=== PATIENT | male | born 1960 | race Caucasian/White ===

== ENCOUNTER 2019-02-11 13:57 | Outpatient (CLI) | payer BC ==
--- NOTE | 2019-02-11 14:41 | ULT ---
EXAM: US Renal Bilateral STANDARD PROVIDED CLINICAL HISTORY: Microhematuria COMPARISON: None FINDINGS: Right kidney measures approximately 10.9 x 5.3 x 4.8 cm and demonstrates no evidence for hydronephros is, sonographically apparent calculus or mass. Left kidney measures approximately 11.8 x 6.2 x 5.1 cm and demonstrates no evidence for hydronephrosi s, sonographically apparent calculus or mass. 3 cm simple left renal cyst measuring about 3.4 cm. Urinary bladder appears sonographically unremarkable. Prevoid bladder volume 83 cc. Post void bladder volume 11.3 cc. IMPRESSION: No evidence for hydronephrosis.
== END 2019-02-11 13:58 | disposition home or self-care (01) ==
LOC: BICULT 13:57
PROVIDERS: ATTEND Family Medicine
DX: R31.21 Asymptomatic microscopic hematuria (principal)
CPT/HCPCS: 76770

== ENCOUNTER 2020-07-20 03:12 | Inpatient (IN) | payer BC, SELFPAY ==
[2020-07-20] MEDS ORDERED: Ondansetron PF 4 MG/2 ML Vial ONE (03:39)
[2020-07-20] MEDS ORDERED: Aspirin Chewable 81 MG TAB ONE (03:39)
[2020-07-20] MEDS ORDERED: Mag-Al 1200 mg/1200 mg/30 ML UDCUP ONE (03:40)
[2020-07-20] MEDS ORDERED: Lidocaine Viscous Sol 2% 15 ml UD Cup ONE (03:40)
[2020-07-20 03:56] LABS: #Basophils 0.1 thou/uL (0.0-0.2); #Eosinphils 0.1 thou/uL (0.0-0.7); #Lymphocytes 1.7 thou/uL (1.20-3.40); #Monocytes 0.8 thou/uL (0.11-0.59); #Neutrophils 10.6 thou/uL (1.40-6.50); %Basophils 0.5 % (0.0-1.0); %Eosinophils 0.4 % (0.0-10.0); %Lymphocytes 12.9 % (21.0-51.0); %Monocytes 6.3 % (0.0-10.0); %Neutrophils 79.9 % (42.0-75.0); Hemoglobin 15.7 g/dL (14.0-18.0); Mean Corpuscular HGB CONC 34.6 g/dL (32.0-36.0); Mean Corpuscular Hemoglobin 32.5 pg (27.0-31.0); Mean Corpuscular Volume 93.8 fL (78.0-98.0); Mean Platelet Volume 9.6 fL (7.4-10.4); Platelet Count 168 thou/uL (130-400); RBC Distribution Width 11.9 % (11.5-14.5); Red Blood Cell (RBC) Count 4.84 mill/uL (4.70-6.10); White Blood Cell (WBC) Count 13.3 thou/uL (4.8-10.8)
[2020-07-20 04:19] LABS: ALT (SGPT) 16 U/L (8-55); AST (SGOT) 15 U/L (5-34); Albumin 4.8 g/dL (3.5-5.0); Alkaline Phosphatase 73 U/L (40-110); Anion Gap 15 mmol/L (10-20); BUN (Urea Nitrogen) 14 mg/dL (8.4-25.7); Bilirubin, Total 0.3 mg/dL (0.2-1.2); CK (CPK) 110 U/L (30-200); Calc. Creatinine Clearance 0 mL/min (70-130); Calcium 9.2 mg/dL (7.8-10.44); Carbon Dioxide 31 mmol/L (22-29); Chloride 100 mmol/L (98-107); Globulin 2.7 g/dL (2.4-3.5); Glucose 146 mg/dL (70-105); Lipase 27 U/L (8-78); Potassium 4.4 mmol/L (3.5-5.1); Protein, Total 7.5 g/dL (6.0-8.3); Sodium 142 mmol/L (136-145)
[2020-07-20] MEDS ORDERED: Enoxaparin Sodium 80 MG/0.8 ML SYRINGE ONE (04:46)
[2020-07-20] MEDS ORDERED: Ondansetron ODT 4 MG TAB PO PRN (05:14)
[2020-07-20] MEDS ORDERED: Ondansetron PF 4 MG/2 ML Vial IVP PRN (05:14)
[2020-07-20] MEDS ORDERED: Acetaminophen 325 MG TAB PO PRN (05:14)
[2020-07-20 07:12] LABS: Cardiac Risk 5.9 (Less than 4.5)
[2020-07-20 07:20] LABS: Troponin I 0.746 ng/mL (< 0.028)
[2020-07-20 10:21] LABS: Troponin I 4.075 ng/mL (< 0.028)
[2020-07-20] MEDS ORDERED: Communication Order-Pharmacy FS SCH (10:30)
[2020-07-20 11:14] LABS: SARS-CoV-2 PCR by NAA Not Detected (NotDetected)
[2020-07-20 13:10] LABS: Troponin I 8.535 ng/mL (< 0.028)
[2020-07-20] MEDS ORDERED: Iopamidol 370 76% 100 ML VIAL ONE (13:26)
[2020-07-20 16:05] VITALS: BMI 24.5
[2020-07-20] MEDS: Atorvastatin Calcium 40 MG TAB PO SCH (20:50)
[2020-07-20] MEDS ORDERED: Enoxaparin Sodium 80 MG/0.8 ML SYRINGE SC SCH (21:00)
[2020-07-21] MEDS ORDERED: Iopamidol 370 76% 100 ML VIAL ONE (08:49)
[2020-07-21] MEDS: Aspirin 81 mg Enteric Coated Tablet PO SCH (11:27)
[2020-07-21] MEDS ORDERED: Lidocaine 1% (PF) 30 ML VIAL ONE (11:29)
[2020-07-21] MEDS ORDERED: Midazolam HCl 2 mg/2 ml Vial ONE (12:12)
[2020-07-21] MEDS ORDERED: Heparin 10,000 UNITS/ 10 ML VIAL ONE (12:39)
[2020-07-21] MEDS ORDERED: Protamine Sulfate 50 MG/5 ML VIAL ONE (13:09)
[2020-07-21] MEDS: Enoxaparin Sodium 80 MG/0.8 ML SYRINGE SC SCH (20:36)
[2020-07-21] MEDS: Atorvastatin Calcium 40 MG TAB PO SCH (20:36)
[2020-07-22 06:25] LABS: Anion Gap 12 mmol/L (10-20); BUN (Urea Nitrogen) 11 mg/dL (8.4-25.7); Calc. Creatinine Clearance 102 mL/min (70-130); Calcium 8.7 mg/dL (7.8-10.44); Carbon Dioxide 24 mmol/L (22-29); Chloride 106 mmol/L (98-107); Glucose 95 mg/dL (70-105); Potassium 4.1 mmol/L (3.5-5.1); Sodium 138 mmol/L (136-145)
[2020-07-22] MEDS: Aspirin 81 mg Enteric Coated Tablet PO SCH (10:07)
[2020-07-22] MEDS: Enoxaparin Sodium 80 MG/0.8 ML SYRINGE SC SCH ×2 (10:07→21:06)
[2020-07-22] MEDS ORDERED: Iopamidol 370 76% 100 ML VIAL ONE (14:09)
[2020-07-22] MEDS ORDERED: Communication Order-Pharmacy FS ONE (15:10)
[2020-07-22] MEDS ORDERED: Famotidine 20 MG TAB PO SCH (21:00)
[2020-07-22] MEDS: Atorvastatin Calcium 40 MG TAB PO SCH (21:06)
[2020-07-23] MEDS ORDERED: Albumin 5% 0 ML ONE (08:00)
[2020-07-23] MEDS ORDERED: Sodium Chloride 0.9% 30 ML ONE (09:05)
[2020-07-23] MEDS ORDERED: Albumin 5% 500 ML ONE (09:05)
[2020-07-23] MEDS ORDERED: Heparin 10,000 UNITS/1 ML VIAL 30,000 UNITS in Sodium Chloride 0.9% 1,000 ML FS SCH (09:30)
[2020-07-23] MEDS ORDERED: Fentanyl 250 MCG/5 ML VIAL ONE (09:53)
[2020-07-23] MEDS ORDERED: Midazolam HCl 5 mg/5 ml Vial ONE (09:53)
[2020-07-23] MEDS ORDERED: CEFAZOLIN 2 GM in Premix Bag 1 BAG IVPB SCH (10:30)
[2020-07-23] MEDS ORDERED: Calcium Chloride 1 GM/10 ML Abboject SYRINGE ONE (10:39)
[2020-07-23] MEDS ORDERED: Heparin 30,000 units/30 ml VIAL ONE (10:39)
[2020-07-23] MEDS ORDERED: Papaverine 60 MG/2 ML VIAL ONE (10:39)
[2020-07-23] MEDS ORDERED: Mannitol 12.5 GM/50 ML ONE (10:39)
[2020-07-23] MEDS ORDERED: Magnesium Sulfate 1 GM/2 ML VIAL ONE (10:39)
[2020-07-23] MEDS ORDERED: Aminocaproic Acid 5 GM/20 ML VIAL ONE (10:39)
[2020-07-23] MEDS ORDERED: Lidocaine 2% PF 100 mg/5 ml Syringe ONE (10:39)
[2020-07-23] MEDS ORDERED: Thrombin 5000 UNITS/5 ML VIAL ONE (10:39)
[2020-07-23] MEDS ORDERED: ePHEDrine Sulfate 50 MG/10 ML VIAL ONE (10:39)
[2020-07-23] MEDS ORDERED: Vecuronium 10 MG VIAL ONE (10:39)
[2020-07-23] MEDS ORDERED: Potassium Chloride 60 MEQ/30 ML VIAL ONE (10:39)
[2020-07-23] MEDS ORDERED: Sodium Bicarb 50 MEQ/50 ML Abboject 8.4% SYRINGE ONE (10:39)
[2020-07-23] MEDS ORDERED: Protamine Sulfate 250 MG/25 ML VIAL ONE (10:39)
[2020-07-23] MEDS ORDERED: PROPOFOL 200 MG/20 ML VIAL ONE (10:39)
[2020-07-23] MEDS ORDERED: Hetastarch 6% 500 ML 500 ML IVPB PRN (13:25)
[2020-07-23] MEDS ORDERED: niCARdipine 25 MG in Sodium Chloride 0.9% 250 ML 250 ML IVPB PRN (13:25)
[2020-07-23] MEDS ORDERED: Morphine 2 MG/ML VIAL SLOW IVP PRN (13:25)
[2020-07-23] MEDS ORDERED: hydrALAZINE 20 MG/ML VIAL SLOW IVP PRN (13:25)
[2020-07-23] MEDS ORDERED: Fentanyl 100 MCG/2 ML VIAL SLOW IVP PRN ×2 (13:25)
[2020-07-23] MEDS ORDERED: Norepinephrine 8 MG/0.9% NS 250 ML IVPB PRN (13:25)
[2020-07-23] MEDS ORDERED: Mag-Al 1200 mg/1200 mg/30 ML UDCUP PO PRN (13:25)
[2020-07-23] MEDS ORDERED: Promethazine HCl 25 MG/ML VIAL IM PRN (13:25)
[2020-07-23] MEDS ORDERED: Guaifenesin DM 100-10/5 ML UDCUP PO PRN (13:25)
[2020-07-23] MEDS ORDERED: Nitroglycerin 50 MG/250 ML BOT 250 ML IVPB PRN (13:25)
[2020-07-23] MEDS ORDERED: Bisacodyl 5 MG TAB PO PRN (13:25)
[2020-07-23] MEDS ORDERED: Ondansetron PF 4 MG/2 ML Vial IVP PRN (13:25)
[2020-07-23] MEDS ORDERED: Bisacodyl 10 MG SUPP PR PRN (13:25)
[2020-07-23] MEDS ORDERED: Post-Op Insulin Drip Protocol IVPB ONE (13:25)
[2020-07-23] MEDS ORDERED: Acetaminophen 325 MG TAB PO PRN (13:25)
[2020-07-23] MEDS ORDERED: Potassium Chloride 20 MEQ/100 ML PREMIX BAG IVPB PRN (13:25)
[2020-07-23] MEDS ORDERED: HUMULIN R 100 UNITS in Sodium Chloride 0.9% 100 ML IVPB SCH (14:15)
[2020-07-23] MEDS ORDERED: Dextrose 50% Abboject 50 ML SYRINGE SLOW IVP PRN (14:15)
[2020-07-23] MEDS ORDERED: Dextrose 5% in Water 1,000 ML IV PRN (14:15)
[2020-07-23] MEDS ORDERED: Lantus 1000 UNITS/10 ML VIAL SC PRN (14:15)
[2020-07-23 14:28] LABS: Actual Bicarbonate (HCO3a) 23.9 mEq/L (22-28); CO2 Tension 49.8 mmHg (35.0-45.0); Calcium, Ionized (arterial) 1.08 mmol/L (1.12-1.30); Carboxyhemoglobin (COHb) 0.6 gm% (0.0-3.0); Hemoglobin (Hb) 13.7 g/dL (14.0-18.0); O2 Tension (PaO2), arterial 80.1 mmHg (80.0-100.0); Potassium - ABG Lab 4.57 mmol/L (3.70-5.30)
[2020-07-23 14:29] LABS: Puncture Site Arterial Line
[2020-07-23] MEDS: Ketorolac Tromethamine 30 MG/ML VIAL IVP SCH ×2 (14:46→20:33)
[2020-07-23] MEDS: Insulin Regular 300 UNITS/3 ML VIAL SC PRN ×3 (14:48→20:34)
[2020-07-23] MEDS: Sodium Chloride 0.9% 1,000 ML IV SCH (14:48)
[2020-07-23 14:49] LABS: INR-International Normal Ratio 1.2; Prothrombin Time 15.7 sec (12.0-14.7)
[2020-07-23 14:50] LABS: #Eosinphils 0.1 thou/uL (0.0-0.7); #Lymphocytes 1.6 thou/uL (1.20-3.40); #Monocytes 1.1 thou/uL (0.11-0.59); #Neutrophils 13.4 thou/uL (1.40-6.50); %Basophils 0.1 % (0.0-1.0); %Eosinophils 0.5 % (0.0-10.0); %Lymphocytes 9.9 % (21.0-51.0); %Monocytes 6.8 % (0.0-10.0); %Neutrophils 82.6 % (42.0-75.0); Mean Corpuscular HGB CONC 35.2 g/dL (32.0-36.0); Mean Corpuscular Hemoglobin 33.2 pg (27.0-31.0); Mean Corpuscular Volume 94.3 fL (78.0-98.0); PTT 36.8 sec (22.9-36.1); RBC Distribution Width 11.8 % (11.5-14.5); Red Blood Cell (RBC) Count 3.93 mill/uL (4.70-6.10); White Blood Cell (WBC) Count 16.3 thou/uL (4.8-10.8)
[2020-07-23 14:56] LABS: Anion Gap 12 mmol/L (10-20); BUN (Urea Nitrogen) 10 mg/dL (8.4-25.7); Calc. Creatinine Clearance 116 mL/min (70-130); Calcium 7.4 mg/dL (7.8-10.44); Carbon Dioxide 22 mmol/L (22-29); Chloride 110 mmol/L (98-107); Glucose 130 mg/dL (70-105); Potassium 4.6 mmol/L (3.5-5.1); Sodium 139 mmol/L (136-145)
[2020-07-23 15:09] LABS: Mean Platelet Volume 9.6 fL (7.4-10.4); Platelet Count 99 thou/uL (130-400); Platelet Morphology Comment Appears Decreased; RBC Morphology Normal
[2020-07-23 16:22] LABS: Actual Bicarbonate (HCO3a) 22.7 mEq/L (22-28); Analyzer IN Cardio OR; Base Excess (BEa) -3.6 mEq/L (-2.0 to +3.0); CO2 Tension 45.7 mmHg (35.0-45.0); Calcium, Ionized (arterial) 1.11 mmol/L (1.12-1.30); Carboxyhemoglobin (COHb) 0.8 gm% (0.0-3.0); O2 Tension (PaO2), arterial 104.8 mmHg (80.0-100.0); Potassium - ABG Lab 4.27 mmol/L (3.70-5.30); pH, Arterial 7.31 (7.35-7.45)
[2020-07-23 16:23] LABS: ALV-art Gradient 194.575 mmHg (0-20); Puncture Site Arterial Line
[2020-07-23] MEDS: HYDROcodone/Acetaminophen 5/325 mg Tablet PO PRN ×2 (17:43→21:55)
[2020-07-23 18:30] LABS: Hemoglobin 13.3 g/dL (14.0-18.0)
[2020-07-23 18:45] LABS: Potassium 4.4 mmol/L (3.5-5.1)
[2020-07-23] MEDS: Docusate 100 MG CAP PO SCH (20:33)
[2020-07-23] MEDS: Atorvastatin Calcium 40 MG TAB PO SCH (20:33)
[2020-07-23] MEDS ORDERED: Famotidine/PF 20 mg/2ml Vial SLOW IVP SCH (21:00)
[2020-07-24] MEDS: Insulin Regular 300 UNITS/3 ML VIAL SC PRN (00:15)
[2020-07-24] MEDS: Sodium Chloride 0.9% 1,000 ML IV SCH (01:37)
[2020-07-24] MEDS: HYDROcodone/Acetaminophen 5/325 mg Tablet PO PRN ×4 (02:06→17:33)
[2020-07-24] MEDS: Ketorolac Tromethamine 30 MG/ML VIAL IVP SCH ×2 (02:06→09:02)
[2020-07-24 04:26] LABS: #Lymphocytes 0.9 thou/uL (1.20-3.40); #Monocytes 1.6 thou/uL (0.11-0.59); %Eosinophils 0.1 % (0.0-10.0); %Lymphocytes 6.4 % (21.0-51.0); %Neutrophils 82.4 % (42.0-75.0); Hemoglobin 11.8 g/dL (14.0-18.0); Mean Corpuscular HGB CONC 33.9 g/dL (32.0-36.0); Mean Corpuscular Hemoglobin 32.1 pg (27.0-31.0); Mean Corpuscular Volume 94.7 fL (78.0-98.0); Mean Platelet Volume 9.9 fL (7.4-10.4); Platelet Count 123 thou/uL (130-400); RBC Distribution Width 11.9 % (11.5-14.5); Red Blood Cell (RBC) Count 3.68 mill/uL (4.70-6.10); White Blood Cell (WBC) Count 14.5 thou/uL (4.8-10.8)
[2020-07-24 04:49] LABS: Anion Gap 13 mmol/L (10-20); BUN (Urea Nitrogen) 12 mg/dL (8.4-25.7); Calc. Creatinine Clearance 112 mL/min (70-130); Calcium 7.8 mg/dL (7.8-10.44); Carbon Dioxide 20 mmol/L (22-29); Chloride 111 mmol/L (98-107); Glucose 119 mg/dL (70-105); Potassium 4.2 mmol/L (3.5-5.1); Sodium 140 mmol/L (136-145)
[2020-07-24] MEDS: Docusate 100 MG CAP PO SCH ×2 (09:03→20:30)
[2020-07-24] MEDS: Aspirin Chewable 81 MG TAB PO SCH (09:03)
[2020-07-24] MEDS: Atorvastatin Calcium 40 MG TAB PO SCH (20:30)
[2020-07-25] MEDS: HYDROcodone/Acetaminophen 5/325 mg Tablet PO PRN ×3 (05:26→20:56)
[2020-07-25] MEDS: Aspirin Chewable 81 MG TAB PO SCH (07:40)
[2020-07-25] MEDS: Docusate 100 MG CAP PO SCH ×2 (07:40→20:53)
[2020-07-25] MEDS ORDERED: Bisacodyl 10 MG SUPP PR PRN (12:05)
[2020-07-25] MEDS ORDERED: Nitroglycerin 0.4 MG TAB (25 Tab Bottle) SL PRN (12:05)
[2020-07-25] MEDS ORDERED: Guaifenesin DM 100-10/5 ML UDCUP PO PRN (12:05)
[2020-07-25] MEDS ORDERED: Mineral Oil ENEMA PR PRN (12:05)
[2020-07-25] MEDS ORDERED: Zolpidem Tartrate 5 MG TAB PO PRN (12:05)
[2020-07-25] MEDS ORDERED: Bisacodyl 5 MG TAB PO PRN (12:05)
[2020-07-25] MEDS ORDERED: Mag-Al 1200 mg/1200 mg/30 ML UDCUP PO PRN (12:05)
[2020-07-25] MEDS ORDERED: Milk Of Magnesia 30 ML UDCUP PO PRN (12:05)
[2020-07-25] MEDS ORDERED: diphenhydrAMINE 25 MG CAP PO PRN (12:05)
[2020-07-25] MEDS ORDERED: Furosemide 20 MG/2 ML VIAL SLOW IVP SCH (12:15)
[2020-07-25] MEDS: Atorvastatin Calcium 40 MG TAB PO SCH (20:53)
[2020-07-26 06:43] LABS: #Basophils 0.1 thou/uL (0.0-0.2); #Eosinphils 0.1 thou/uL (0.0-0.7); #Lymphocytes 1.6 thou/uL (1.20-3.40); #Monocytes 1.5 thou/uL (0.11-0.59); #Neutrophils 8.4 thou/uL (1.40-6.50); %Basophils 0.5 % (0.0-1.0); %Eosinophils 0.9 % (0.0-10.0); %Lymphocytes 13.5 % (21.0-51.0); %Monocytes 12.7 % (0.0-10.0); %Neutrophils 72.4 % (42.0-75.0); Hemoglobin 10.6 g/dL (14.0-18.0); Mean Corpuscular HGB CONC 34.9 g/dL (32.0-36.0); Mean Corpuscular Hemoglobin 33.2 pg (27.0-31.0); Platelet Count 117 thou/uL (130-400); RBC Distribution Width 11.8 % (11.5-14.5); Red Blood Cell (RBC) Count 3.19 mill/uL (4.70-6.10); White Blood Cell (WBC) Count 11.7 thou/uL (4.8-10.8)
[2020-07-26 06:58] LABS: Anion Gap 14 mmol/L (10-20); BUN (Urea Nitrogen) 10 mg/dL (8.4-25.7); Calc. Creatinine Clearance 111 mL/min (70-130); Calcium 8.4 mg/dL (7.8-10.44); Carbon Dioxide 24 mmol/L (22-29); Chloride 106 mmol/L (98-107); Glucose 100 mg/dL (70-105); Potassium 3.7 mmol/L (3.5-5.1); Sodium 140 mmol/L (136-145)
[2020-07-26] MEDS: HYDROcodone/Acetaminophen 5/325 mg Tablet PO PRN ×3 (09:28→21:48)
[2020-07-26] MEDS: Aspirin Chewable 81 MG TAB PO SCH (09:28)
[2020-07-26] MEDS: Docusate 100 MG CAP PO SCH ×2 (09:28→19:49)
[2020-07-26] MEDS: Atorvastatin Calcium 40 MG TAB PO SCH (19:49)
[2020-07-26] MEDS ORDERED: Metoprolol Tartrate 25 MG TAB PO SCH ×2 (21:00)
[2020-07-27] MEDS: Docusate 100 MG CAP PO SCH (08:35)
[2020-07-27] MEDS: Aspirin Chewable 81 MG TAB PO SCH (08:35)
[2020-07-27 08:45] VITALS: TEMP 98.7
[2020-07-27 12:59] VITALS: BP 114/69
[2020-07-29 12:15] LABS: Analyzer IN Cardio OR; Base Excess (BEa) -4.3 mEq/L (-2.0 to +3.0); CO2 Tension 39.4 mmHg (35.0-45.0); Calcium, Ionized (arterial) 1.09 mmol/L (1.12-1.30); Carboxyhemoglobin (COHb) 0.3 gm% (0.0-3.0); Hemoglobin (Hb) 10.6 g/dL (14.0-18.0); O2 Tension (PaO2), arterial 101.5 mmHg (80.0-100.0); Potassium - ABG Lab 4.48 mmol/L (3.70-5.30); pH, Arterial 7.35 (7.35-7.45)
[2020-07-29 13:06] LABS: Analyzer IN Cardio OR; Base Excess (BEa) -2.4 mEq/L (-2.0 to +3.0); CO2 Tension 42.7 mmHg (35.0-45.0); Calcium, Ionized (arterial) 1.06 mmol/L (1.12-1.30); Carboxyhemoglobin (COHb) 0.3 gm% (0.0-3.0); Hemoglobin (Hb) 9.5 g/dL (14.0-18.0); O2 Tension (PaO2), arterial 79.8 mmHg (80.0-100.0); Potassium - ABG Lab 4.49 mmol/L (3.70-5.30); pH, Arterial 7.35 (7.35-7.45)
[2020-07-29 13:07] LABS: Actual Bicarbonate (HCO3a) 24.9 mEq/L (22-28); Analyzer IN Cardio OR; Base Excess (BEa) -0.5 mEq/L (-2.0 to +3.0); CO2 Tension 44.1 mmHg (35.0-45.0); Calcium, Ionized (arterial) 0.85 mmol/L (1.12-1.30); Carboxyhemoglobin (COHb) 0.3 gm% (0.0-3.0); O2 Tension (PaO2), arterial 280.2 mmHg (80.0-100.0); pH, Arterial 7.37 (7.35-7.45)
[2020-07-29 13:07] LABS: Actual Bicarbonate (HCO3a) 25.7 mEq/L (22-28); Analyzer IN Cardio OR; Base Excess (BEa) 0.6 mEq/L (-2.0 to +3.0); CO2 Tension 43.9 mmHg (35.0-45.0); Calcium, Ionized (arterial) 0.93 mmol/L (1.12-1.30); Carboxyhemoglobin (COHb) 0.3 gm% (0.0-3.0); Hemoglobin (Hb) 9.7 g/dL (14.0-18.0); O2 Tension (PaO2), arterial 339.3 mmHg (80.0-100.0); pH, Arterial 7.39 (7.35-7.45)
[2020-07-29 13:08] LABS: Actual Bicarbonate (HCO3v) 24 mEq/L (22-28); Analyzer IN Cardio OR; Base Excess -3.3 mEq/L (-2.0 to +3.0); Calcium, Ionized (venous) 1.11 mmol/L (1.16-1.32); Chloride (VBG) 108 mmol/L (98-106); Hemoglobin (Hb) 13.2 g/dL (13.1-17.2); Potassium (VBG) 4.03 mmol/L (3.70-5.30); Sodium 138.1 mmol/L (133-146); pH (venous) 7.28 (7.32-7.43)
[2020-07-29 13:08] LABS: Actual Bicarbonate (HCO3a) 20.8 mEq/L (22-28); Analyzer IN Cardio OR; Base Excess (BEa) -4.7 mEq/L (-2.0 to +3.0); Calcium, Ionized (arterial) 1.13 mmol/L (1.12-1.30); Carboxyhemoglobin (COHb) 0.4 gm% (0.0-3.0); Hemoglobin (Hb) 13.7 g/dL (14.0-18.0); O2 Tension (PaO2), arterial 277.4 mmHg (80.0-100.0); Potassium - ABG Lab 3.78 mmol/L (3.70-5.30); pH, Arterial 7.33 (7.35-7.45)
[2020-07-29 13:09] LABS: Puncture Site Arterial Line
[2020-07-29 13:09] LABS: Puncture Site Arterial Line
[2020-07-29 13:10] LABS: Puncture Site Arterial Line
[2020-07-29 13:10] LABS: Puncture Site Arterial Line
[2020-07-29 13:11] LABS: Puncture Site Arterial Line
== END 2020-07-27 11:19 | disposition home or self-care (01) | DRG 234 ==
LOC: ERS 03:12 → ERHOLD 04:45 → 2NO 15:11 → CCU 07-23 09:52
PROVIDERS: ADMIT Family Medicine; ATTEND Family Medicine
PROC: 4A023N7 Measurement of Cardiac Sampling and Pressure, Left Heart, Percutaneous Approach (ICD-10-PCS; 2020-07-21)
PROC: B2111ZZ Fluoroscopy of Multiple Coronary Arteries using Low Osmolar Contrast (ICD-10-PCS; 2020-07-21)
PROC: 02100Z8 Bypass Coronary Artery, One Artery from Right Internal Mammary, Open Approach (ICD-10-PCS; principal; 2020-07-23)
PROC: 5A1221Z Performance of Cardiac Output, Continuous (ICD-10-PCS; 2020-07-23)
DX: I21.4 Non-ST elevation (NSTEMI) myocardial infarction (principal); Q24.5 Malformation of coronary vessels; I25.118 Atherosclerotic heart disease of native coronary artery with other forms of angina pectoris; R00.1 Bradycardia, unspecified; E78.5 Hyperlipidemia, unspecified; I08.1 Rheumatic disorders of both mitral and tricuspid valves; Z20.822 Contact with and (suspected) exposure to COVID-19; F17.210 Nicotine dependence, cigarettes, uncomplicated; Z71.6 Tobacco abuse counseling; Z86.19 Personal history of other infectious and parasitic diseases
CPT/HCPCS: 36415; 36416; 36430; 71045; 71275; 74174; 80048; 80053; 80061; 82550; 82805; 83036; 83690; 84443; 84484; 85025; 85347; 85610; 85730; 86850; 86900; 86901; 93005; 93010; 93306; 93458; 93798; 94002; 94150; 96372; 96374; 97139; 99152; 99153; C1769; J0690; J1642; J1644; J1650; J1815; J1885; J1940; J2001; J2150; J2250; J2270; J2405; J2440; J2704; J2720; J3010; J3370; J3475; J3480; P9045; Q9967; S0017; S0028; U0003; U0005